=== PATIENT | male | born 1960 | race Two or more races ===

== ENCOUNTER 2022-08-24 17:25 | Emergency (ER) | payer BC ==
[~2022-08-24] VITALS: Ht 188 cm; Wt 109.5 kg
[2022-08-24 19:22] LABS: Basophils # (auto) 0.1 10 ^3/uL (0-0.2); Basophils % (auto) 0.6 % (0.0-2.0); Eosinophils # (auto) 0 10 ^3/uL (0-0.8); Eosinophils % (auto) 0.4 % (0.0-7.0); Hematocrit 50.5 % (41.0-53.0); Hemoglobin 15.7 g/dL (13.5-17.5); Lymphocytes % (auto) 31.3 % (10.0-50.0); Mean Corpuscular Hemoglobin 27.3 pg (28.0-32.0); Mean Corpuscular Hgb Conc. 31.2 g/dL (32.0-36.0); Mean Corpuscular Volume 87.7 fL (80.0-100.0); Monocytes # (auto) 0.8 10 ^3/uL (0-1.3); Monocytes % (auto) 8.1 % (0.0-12.0); Neutrophils # (auto) 5.6 10 ^3/uL (1.6-8.6); Neutrophils % (auto) 59.6 % (37.0-80.0); Red Blood Cells 5.76 10^6/uL (4.5-5.90); Red Cell Distribution Width 13.6 % (11.8-14.3); White Blood Cell 9.4 10^3/uL (4.4-10.8)
[2022-08-24] MEDS ORDERED: SODIUM CHLORIDE 0.9% 1,000 ML IV ONE (19:30)
[2022-08-24 19:35] LABS: Albumin 3.7 g/dL (3.4-5.0); Calcium 10.1 mg/dL (8.5-10.1); Potassium 4.8 mmol/L (3.5-5.1)
[2022-08-24 19:38] LABS: Total Protein 7.7 g/dL (6.4-8.2)
[2022-08-24 19:43] LABS: Bilirubin, Total 0.3 mg/dL (0.2-1.0)
[2022-08-24 19:48] LABS: BUN/Creatinine Ratio 15.9
[2022-08-24 22:05] LABS: Urine WBC None Seen /hpf (0 - 3)
[2022-08-24] MEDS ORDERED: INSULIN LANTUS (GLARGINE) 1 /0.01ml (100units/ml) SC ONE (22:30)
[2022-08-24] MEDS ORDERED: InsuLIN REG 1unit/0.01ml Soln (100units/ml) IV ONE (22:30)
[2022-08-24 22:59] LABS: Urine Bacteria NONE SEEN /hpf (None Seen); Urine Blood Negative /uL (Negative); Urine Specific Gravity 1.025 (1.001-1.035)
[2022-08-25] VITALS: BP 152/71
== END 2022-08-25 00:27 | disposition home or self-care (01) ==
LOC: ER 17:25
DX: E11.65 Type 2 diabetes mellitus with hyperglycemia (principal)
CPT/HCPCS: 36415; 80053; 81001; 82962; 85025; 96361; 96372; 96374; 99285; J1815; J7030

== ENCOUNTER 2023-03-24 12:58 | Emergency (ER) | payer BC ==
[~2023-03-24] VITALS: Ht 188 cm; Wt 109.2 kg
[2023-03-24 15:19] VITALS: BP 123/61
[2023-03-24] MEDS ORDERED: HYDROcodone-ACET 5/325MG TAB PO ONE (16:15)
[2023-03-24] MEDS ORDERED: METH-1182 PO (16:16)
[2023-03-24] MEDS ORDERED: IBUP-1456 PO (16:16)
== END 2023-03-24 16:29 | disposition home or self-care (01) ==
LOC: ER 12:58
DX: S39.012A Strain of muscle, fascia and tendon of lower back, initial encounter (principal); S39.013A Strain of muscle, fascia and tendon of pelvis, initial encounter; E11.9 Type 2 diabetes mellitus without complications; I10 Essential (primary) hypertension; W18.39XA Other fall on same level, initial encounter; Y93.01 Activity, walking, marching and hiking; Y92.89 Other specified places as the place of occurrence of the external cause; Y99.8 Other external cause status
CPT/HCPCS: 72170; 72220; 82962

== ENCOUNTER 2024-10-04 16:52 | Inpatient (IN) | payer BC, MEDICARE ==
[~2024-10-04] VITALS: Ht 188 cm; Wt 118.0 kg
[~2024-10-04 16:52] MED LIST: IBUP-1456 PO; METH-1182 PO
--- NOTE | 2024-10-04 17:17 | ED.PDOC ---
Rajeev. trauma (HPI) HPI Comments 64 y.o male with PMH of DM and HTN, presents to the ED for an evaluation of multiple falls. Patient reports over the past 2 years having balance issues causing him to fall, have increased x 6 months and today fell 3 times. Patient now complains of right sided upper extremity pain. Patient has not been evaluated for this and has increased dizziness today as well. No chest pain, LOC, SOB, head injuries. Pressure was 240/119 at arrival. Time Seen by MD: 17:01 Primary Care Provider: UNKNOWN Reviewed notes: Nurses Notes, Medications, Allergies Allergies: Coded Allergies: NO KNOWN ALLERGIES (Unverified , 08/24/22) Home Meds Active Scripts Methocarbamol (Methocarbamol) 750 Mg Tab, 750 MG PO BID, #20 TAB Prov:RUTH YIP 03/24/23 Ibuprofen (Ibuprofen) 800 Mg Tab, 1 TAB PO TID, #30 TAB Prov:RUTH YIP 03/24/23 Information Source: Patient, Friend Mode of Arrival: Wheelchair Severity: Moderate Timing: Days, Months Duration: Since onset Location: (R) Forearm, (R) Shoulder Location of laceration: None Mechanism: Fall Past Medical History PAST MEDICAL HISTORY: DM, HTN Surgical History: Denies all surgeries Family History Family History: Reviewed,noncontributory to illness Social History Smoker: Non-Smoker Alcohol: Denies ETOH Use Drugs: Denies Drug Use Lives In: Home Constitutional: denies: chills, diaphoresis, fatigue, fever, malaise, sweats, weakness, others EENTM: denies: blurred vision, double vision, ear bleeding, ear discharge, ear drainage, ear pain, ear ringing, eye pain, eye redness, hearing loss, mouth pain, mouth swelling, nasal discharge, nose bleeding, nose congestion, nose pain, photophobia, tearing, throat pain, throat swelling, voice changes, others Respiratory: denies: cough, hemoptysis, orthopnea, SOB at rest, shortness of breath, SOB with excertion, stridor, wheezing, others Cardiovascular: denies: chest pain, dizzy spells, diaphoresis, Dyspnea on exert ion, edema, irregular heart beat, left arm pain, lightheadedness, palpitations, PND, syncope, others Gastrointestinal: denies: abdomen distended, abdominal pain, blood streaked bowels, constipated, diarrhea, dysphagia, difficulty swallowing, hematemesis, melena, nausea, poor appetite, poor fluid intake, rectal bleeding, rectal pain, vomiting, others Genitourinary: denies: burning, dysuria, flank pain, frequency, hematuria, incontinence, penile discharge, penile sore, pain, testicle pain, testicle swelling, urgency, others Neurological: reports: dizziness; denies: fainting, headache, left sided numbness, left sided weakness, numbness, paresthesia, pre-existing deficit, righ t sided numbness, right sided weakness, seizure, speech problems, tingling, tremors, weakness, others Musculoskeletal: reports: others (Generalized weakness); denies: back pain, gout, joint pain, joint swelling, muscle pain, muscle stiffness, neck pain Integumetry: denies: bruises, change in color, change in hair/nails, dryness, laceration, lesions, lumps, rash, wounds, others Allergic/Immunocompromised: denies: Difficulty Healing, Frequent Infections, Hives, Itching, others Hematologic/Lymphatic: denies: anemia, blood clots, easy bleeding, easy bruising, swollen glands, others Endocrine: denies: excessive hunger, excessive sweating, excessive thirst, excessive urination, flushing, intolerance to cold, intolerance to heat, unexplained weight gain, unexplained weight loss, others Psychiatric: denies: anxiety, bipolar disorder, depression, hopeless, panic disorder, schizophrenia, sleepless, suicidal, others All Other Systems: Reviewed and Negative Physical Exam General Appearance: Mild Distress (Patient complains of general ill feeling and weakness.), Normal HEENT: Normal ENT Inspection, Pharynx Normal, TMs Normal Neck: Full Range of Motion, Non-Tender, Normal, Normal Inspection Respiratory: Chest Non-Tender, Lungs Clear, No Accessory Muscle Use, No Respiratory Distress, Normal Breath Sounds Cardiovascular: No Edema, No JVD, No Murmur, No Gallop, Normal Peripheral Pulses, Regular Rate/Rhythm Breast Exam: Deferred Gastrointestinal: No Organomegaly, Non Tender, No Pulsatile Mass, Normal Bowel Sounds, Soft Genitalia: Deferred Pelvic: Deferred Rectal: Deferred Extremities: No calf tenderness, Normal capillary refill, Normal inspection, Normal range of motion, Non-tender, No pedal edema Musculoskeletal : Apperance: Normal Neurologic: Alert, No Motor Deficits, No Sensory Deficits Cerebellar Function: NOT DONE Reflexes: Normal Skin: Dry, Normal Color, Warm Lymphatic: No Adenopathy Was a procedure done? Was a procedure done?: No Differential Diagnosis Multiple Trauma: Encephalopathy, Other (Intracranial mass, acute renal injury, sepsis, pancreatitis, viral illness) X-Ray, Labs, Meds, VS Vital Signs Date Time Temp Pulse Resp B/P (MAP) Pulse Ox O2 Delivery O2 Flow Rate FiO2 10/04/24 20:00 126/60 10/04/24 19:55 98.7 100 18 126/50 (75) 98 98.7 10/04/24 19:55 100 18 97 Room Air* 0 21 10/04/24 17:15 101 10/04/24 17:13 97.9 99 20 240/119 (159) 97 Lab Test 10/04/24 19:46 10/04/24 17:22 10/04/24 17:08 Range/Units Urine Color Dark-yellow Yellow Urine Clarity Turbid H Clear Urine pH 5.5 5.0-9.0 Urine Specific [place] 1.027 1.001-1.035 Urine Protein 2+ H Negative Urine Ketones 1+ H Negative Urine Blood Negative Negative /uL Urine Nitrite Negative Negative Urine Bilirubin Negative Negative Urine Urobilinogen 2 H Negative mg/dL Urine Leukocyte Esterase Trace Negative /uL Urine RBC None seen 0 - 3 /hpf Urine WBC None seen 0 - 3 /hpf Urine Squamous Epithelial Cells None seen <5 /hpf Urine Bacteria None seen None Seen /hpf Urine Glucose 2+ H Normal mg/dL White Blood Count 11.2 H 4.4-10.8 10^3/uL Red Blood Count 4.87 4.5-5.90 10^6/uL Hemoglobin 14.1 13.5-17.5 g/dL Hematocrit 43.2 41.0-53.0 % Mean Corpuscular Volume 88.7 80.0-100.0 fL Mean Corpuscular Hemoglobin 29.0 28.0-32.0 pg Mean Corpuscular Hemoglobin Concent 32.6 32.0-36.0 g/dL Red Cell Distribution Width 14.0 11.8-14.3 % Platelet Count 388 140-450 10^3/uL Mean Platelet Volume 9.0 6.9-10.8 fL Neutrophils (%) (Auto) 60.7 37.0-80.0 % Lymphocytes (%) (Auto) 29.9 10.0-50.0 % Monocytes (%) (Auto) 8.4 0.0-12.0 % Eosinophils (%) (Auto) 0.5 0.0-7.0 % Basophils (%) (Auto) 0.5 0.0-2.0 % Neutrophils # (Auto) 6.8 1.6-8.6 10 ^3/uL Lymphocytes # (Auto) 3.3 0.4-5.4 10 ^3/uL Monocytes # (Auto) 0.9 0-1.3 10 ^3/uL Eosinophils # (Auto) 0.1 0-0.8 10 ^3/uL Basophils # (Auto) 0.1 0-0.2 10 ^3/uL Nucleated Red Blood Cells 0.0 % Sodium Level 134 L 136-145 mmol/L Potassium Level 4.3 3.5-5.1 mmol/L Chloride Level 101 98-107 mmol/L Carbon Dioxide Level 25 20-31 mmol/L Anion Gap 8 5-15 Blood Urea Nitrogen 50 H 9-23 mg/dL Creatinine 2.74 H 0.700-1.30 mg/dL Glomerular Filtration Rate Calc 25 >90 mL/min BUN/Creatinine Ratio 18.2 10.0-20.0 Serum Glucose 114 H 74-106 mg/dL Calcium Level 11.2 H 8.7-10.4 mg/dL Troponin I High Sensitivity 18 </=54 ng/L B-Type Natriuretic Peptide 15.57 0-100 pg/mL Lipase 73 H 12-53 U/L POC Glucose 117 H 70-106 mg/dl X-Ray, Labs, Meds, VS Comment All studies performed the ED were evaluated by me personally. Laboratories revealed an elevated lipase as well as what appears to be an acute on chronic renal injury. Patient denies any knowledge of renal concerns. CT of the abdomen and pelvis was unremarkable for any additional intra-abdominal concerns. Patient's EKG revealed a sinus tachycardia with a rate of 101. Probable left atrial enlargement, left axis deviation and abnormal R-wave progression. NE interval 175 and QT interval of 341. Patient will be admitted for nephrology consultation to address his new renal concerns as well as cardiac evaluation to address his unknown cardiac issues as well as significant blood pressure concerns. Time of 1ST Reevaluation: :38 Reevaluation 1ST: Improved Consultation: PCP, Cardiology Patient Education/Counseling: Diagnosis, Treatment, Prognosis Family Education/Counseling: Diagnosis, Treatment, Prognosis Departure 1 Departure Time of Disposition: 22:38 Impression: Primary Impression: Acute coronary syndromes Additional Impressions: Hypertensive urgency [id number] kidney injury Pancreatitis Disposition: ADMITTED INPATIENT Condition: Stable Discharged With: Self, Spouse Critical Care Note Critical Care Time?: No Stability Stability form required: No I personally scribed for KIKO STEINBERG PAC ([email or web address]) on 10/04/24 at 17:16. Electronically submitted by Silvia Mota ([email or web address]). KIKO STEINBERG PAC Oct 04, 2024 17:16
--- NOTE | 2024-10-04 17:34 | ECG ---
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
--- NOTE | 2024-10-04 17:49 | DVH ---
EXAM: CT HEAD WITHOUT CONTRAST INDICATION: ALOC TECHNIQUE: CT of the head without intravenous contrast. Radiation dose : 1. Head: CT Dose: CTDI volume is 67 mGy. Dose-length product is 1186 mGy*cm The dose indicators for CT are the volume computed tomography (CT) dose index (CTDIvol) and the dose length product (DLP), and are measured in units of mGy and mGy-cm, respectively. These indicators are not patient dose, but values generated from the CT scanner acquisition factors. The report includes radiation exposure data for exposures received during this examination. COMPARISON: None FINDINGS: There is no evidence of acute intracranial hemorrhage, extra-axial collection, mass effect, midline s hift, herniation or hydrocephalus. The ventricles, sulci and cisterns are age appropriate. The leon-white differentiation is intact. Patchy periventricular and subcortical white matter hypoattenuation is nonspecific but may be related to small vessel ischemic disease. The visualized paranasal sinuses and mastoid air cells are clear. The surrounding soft tissues and osseous structures are unremarkable. Right basal ganglia calcificati on. No acute sinusitis IMPRESSION: 1. No acute intracranial abnormality. Radiation optimization: All CT scans at this facility use at least one of these dose optimization michele hniques: Automated exposure control mA and/or kV adjustment per patient size (includes targeted exams where dose is matched to clinical indication) or iterative reconstruction.
[2024-10-04 18:03] LABS: Chloride 101 mmol/L (98-107); Potassium 4.3 mmol/L (3.5-5.1)
[2024-10-04 18:04] LABS: Anion Gap 8 (5-15); Carbon Dioxide 25 mmol/L (20-31)
[2024-10-04 18:07] LABS: Basophils # (auto) 0.1 10 ^3/uL (0-0.2); Basophils % (auto) 0.5 % (0.0-2.0); Eosinophils # (auto) 0.1 10 ^3/uL (0-0.8); Eosinophils % (auto) 0.5 % (0.0-7.0); Hematocrit 43.2 % (41.0-53.0); Hemoglobin 14.1 g/dL (13.5-17.5); Lymphocytes # (auto) 3.3 10 ^3/uL (0.4-5.4); Lymphocytes % (auto) 29.9 % (10.0-50.0); Mean Corpuscular Hgb Conc. 32.6 g/dL (32.0-36.0); Mean Corpuscular Volume 88.7 fL (80.0-100.0); Monocytes # (auto) 0.9 10 ^3/uL (0-1.3); Monocytes % (auto) 8.4 % (0.0-12.0); Neutrophils # (auto) 6.8 10 ^3/uL (1.6-8.6); Neutrophils % (auto) 60.7 % (37.0-80.0); Platelet Count (auto) 388 10^3/uL (140-450); Red Blood Cells 4.87 10^6/uL (4.5-5.90); White Blood Cell 11.2 10^3/uL (4.4-10.8)
[2024-10-04 18:09] LABS: BUN/Creatinine Ratio 18.2 (10.0-20.0)
[2024-10-04 18:20] LABS: Blood Urea Nitrogen 50 mg/dL (9-23); Calcium 11.2 mg/dL (8.7-10.4); Glucose 114 mg/dL (74-106); Lipase 73 U/L (12-53); Sodium 134 mmol/L (136-145)
[2024-10-04 19:55] VITALS: PULSE 100; RESP 18; O2SAT 97
[2024-10-04] MEDS: cloNIDine HCL 0.1 MG TAB PO ONE (20:00)
[2024-10-04 20:22] LABS: Urine Bacteria None Seen /hpf (None Seen); Urine WBC None Seen /hpf (0 - 3)
[2024-10-04 21:00] LABS: Urine Blood Negative /uL (Negative); Urine Clarity Turbid (Clear); Urine Color Dark-Yellow (Yellow); Urine Protein, UAD 2+ (Negative); Urine Specific Gravity 1.027 (1.001-1.035); Urine Squamous Epithelial Cell None Seen /hpf (<5); Urine Urobilinogen 2 mg/dL (Negative); Urine pH 5.5 (5.0-9.0)
--- NOTE | 2024-10-04 21:47 | DVH ---
Exam: CT CT AB PEL WO CON-NO ORAL OR IV History: Elevated laboratories Comparison Study: None available at time of dictation. TECHNIQUE: Multidetector CT of the abdomen was performed from lung bases to pubic symphysis. Imaging was performed without IV contrast. Axial, coronal and sagittal multiplanar reformats were obtained fr om the axial data set by the technologist. Radiation Dose Information: CT Dose: CTDI volume is 17.15 mGy. Dose-length product is 1083.12 mGy*cm FINDINGS: Evaluation of solid organs is limited due to lack of intravenous contrast use. Findings: Lung Bases: No acute or significant lung base finding. Normal heart size. No pleural or pericardial effusion. Liver: The liver is normal in size. No focal lesions. Gallbladder and Biliary Tree: Unremarkable Spleen: Unremarkable Pancreas: The pancreas is grossly normal in appearance. Adrenal Glands: Unremarkable Kidneys: Kidneys are grossly normal without calculi or hydronephrosis. Bladder: Grossly unremarkable for degree of distention. Bowel: The stomach is grossly normal in appearance. Small bowel and colon are normal in caliber and d istribution. The appendix is not visualized; however, no secondary findings of acute appendicitis id entified. Ascites: Absent Lymphadenopathy: No mesenteric, retroperitoneal or periportal lymphadenopathy. Abdominal Wall and Mesentery: Unremarkable. Vasculature: The visualized abdominal aorta is normal in size and caliber. Evaluation of abdominal a nd pelvic vessels is limited due to lack of intravenous contrast. Pelvic Organs: Unremarkable Musculoskeletal: No aggressive focal bony lesions, acute fractures or dislocation. Soft tissues: Unremarkable IMPRESSION: 1. No free fluid no free air 2. No findings of bowel obstruction 3. Stool noted throughout the colon 4. No nephrolithiasis or hydronephrosis. 5. No calcified gallstones Radiation optimization: All CT scans at this facility use at least one of these dose optimization te chniques: automated exposure control mA and/or kV adjustment per patient size (includes targeted exa ms where dose is matched to clinical indication) or iterative reconstruction.
--- NOTE | 2024-10-04 23:08 | DVHHPRES ---
History of Present Illness Resident Creating Document: DARLING LUNSFORD RESIDENT History of Present Illness Patient is 64-year-old male with past medical history of diabetes mellitus, hypertension, CKD stage 4 came to the hospital with a chief complaint of recurrent fainting episode. As per patient he has been having fainting episode since last six months however it got aggravated in last two days. According to patient he fell dizzy and lightheaded when he suddenly stand or start walking around. He does not have any prodrome of symptoms including nausea, vomiting, palpitation, any other symptoms. He never felt fainting or dizziness while sitting or lying down. He denied passing out as he always remember what is happening around him. also observed this kind of episode but denied any seizure-like activity. At the time of evaluation patient denying any other symptoms including chest pain, headache, fever, cough, sputum production, abdominal pain, lower extremity swelling, motor weakness, sensory deficits. Given underlying comorbidities such as uncontrolled diabetes, hypertension and CKD and given multiple medication including high antihypertensive and diabetic medication patient will be evaluated for syncopal episode and will be admitted to the hospital. Home medication: Lantus 40 units evening, Humalog 10 units in a.m. and lunch before meal, 15 units at dinner, 0.5 mg Ozempic every week, metformin 100 mg b.i.d., atorvastatin 80 mg p.o. daily, amlodipine 10 mg p.o. daily, losartan 100 mg p.o. daily, hydrochlorothiazide 25 mg p.o. daily, thiagliatazone 50 mg , metoprolol 50 mg p.o. daily. Past Medical History Diabetes mellitus type 2, hypertension, CKD stage 4 Past Surgical History History of knee meniscal surgery. Family History: None Smoke: No ALCOHOL: none Drugs: None Lives: with Family Review of Systems Review of Systems Eyes: No Pain, No Vision change, No Conjunctivae inflammation, No Eyelid inflammation, No Other, No Redness ENT: No Ear pain, No Ear discharge, No Nose pain, No Nose discharge, No Nose c ongestion, No Mouth pain, No Mouth swelling, No Throat pain, No Throat swelling, No Other Cardiovascular: No Chest Pain, No Palpitations, No Orthopnea, No Paroxysmal Noc. Dyspnea, No Edema, No Lt Headedness, No Other Respiratory: No Cough, No Dry, No Shortness of breath, No SOB with excertion, No Wheezing, No Hemoptysis, No Pleuritic Pain, No Sputum, No Other Gastrointestinal: No Nausea, No Vomiting, No Abdominal Pain, No Diarrhea, No Constipation, No Melena, No Hematochezia, No Other Genitourinary: No Dysuria, No Frequency, No Incontinence, No Hematuria, No Retention, No Other Musculoskeletal: No other, No neck pain, No shoulder pain, No arm pain, No back pain, No hand pain, No leg pain, No foot pain Skin: No Rash, No Lesions, No Jaundice, No Bruising, No Other Allergies: Coded Allergies: NO KNOWN ALLERGIES (Unverified , 08/24/22) Medications Current Medications Medications Dose Ordered Sig/Karla Route Start Time Stop Time Status Last Admin Dose Admin Nitroglycerin 0.4 mg Q5MINP PRN SL 10/04/24 23:15 UNV Morphine Sulfate 2 mg Q30M PRN IV 10/04/24 23:15 UNV Exam Vital Signs Vital Signs Date Time Temp Pulse Resp B/P (MAP) Pulse Ox O2 Delivery O2 Flow Rate FiO2 10/04/24 20:00 126/60 10/04/24 19:55 98.7 100 18 98 98.7 10/04/24 19:55 Room Air* 0 21 Exam General Appearance: Cooperative. Well developed. Well nourished. NAD Head Exam: Normal inspection Neck Exam: Normal inspection. Non-tender. Normal alignment Pulmonary/Respiratory: Chest non-tender. Clear bilateral breath sounds Cardiovascular/Chest: Regular rate and rhythm. No murmurs. No JVD. Peripheral Pulses: 2+ Radial (R). 2+ Radial (L). 2+ Pedal (R). 2+ Pedal (L) Abdominal Exam: Normal bowel sounds. Soft. Nontender. No hepatospenomegaly. No masses Ankle Exam: Negative ankle edema Lower extremities: Negative lower extremity edema Neuro/Mental Status: A&O x4. Coherent Thoughts/Psych: Normal thought pattern. Appropriate mood and affect. Good judgement and insight Appearance: In no acute distress Skin Exam: Normal inspection. Normal color. Warm. Dry Labs/Xrays Labs Test 10/04/24 19:46 10/04/24 17:22 10/04/24 17:08 Range/Units Urine Color Dark-yellow Yellow Urine Clarity Turbid H Clear Urine pH 5.5 5.0-9.0 Urine Specific [place] 1.027 1.001-1.035 Urine Protein 2+ H Negative Urine Ketones 1+ H Negative Urine Blood Negative Negative /uL Urine Nitrite Negative Negative Urine Bilirubin Negative Negative Urine Urobilinogen 2 H Negative mg/dL Urine Leukocyte Esterase Trace Negative /uL Urine RBC None seen 0 - 3 /hpf Urine WBC None seen 0 - 3 /hpf Urine Squamous Epithelial Cells None seen <5 /hpf Urine Bacteria None seen None Seen /hpf Urine Glucose 2+ H Normal mg/dL White Blood Count 11.2 H 4.4-10.8 10^3/uL Red Blood Count 4.87 4.5-5.90 10^6/uL Hemoglobin 14.1 13.5-17.5 g/dL Hematocrit 43.2 41.0-53.0 % Mean Corpuscular Volume 88.7 80.0-100.0 fL Mean Corpuscular Hemoglobin 29.0 28.0-32.0 pg Mean Corpuscular Hemoglobin Concent 32.6 32.0-36.0 g/dL Red Cell Distribution Width 14.0 11.8-14.3 % Platelet Count 388 140-450 10^3/uL Mean Platelet Volume 9.0 6.9-10.8 fL Neutrophils (%) (Auto) 60.7 37.0-80.0 % Lymphocytes (%) (Auto) 29.9 10.0-50.0 % Monocytes (%) (Auto) 8.4 0.0-12.0 % Eosinophils (%) (Auto) 0.5 0.0-7.0 % Basophils (%) (Auto) 0.5 0.0-2.0 % Neutrophils # (Auto) 6.8 1.6-8.6 10 ^3/uL Lymphocytes # (Auto) 3.3 0.4-5.4 10 ^3/uL Monocytes # (Auto) 0.9 0-1.3 10 ^3/uL Eosinophils # (Auto) 0.1 0-0.8 10 ^3/uL Basophils # (Auto) 0.1 0-0.2 10 ^3/uL Nucleated Red Blood Cells 0.0 % Sodium Level 134 L 136-145 mmol/L Potassium Level 4.3 3.5-5.1 mmol/L Chloride Level 101 98-107 mmol/L Carbon Dioxide Level 25 20-31 mmol/L Anion Gap 8 5-15 Blood Urea Nitrogen 50 H 9-23 mg/dL Creatinine 2.74 H 0.700-1.30 mg/dL Glomerular Filtration Rate Calc 25 >90 mL/min BUN/Creatinine Ratio 18.2 10.0-20.0 Serum Glucose 114 H 74-106 mg/dL Calcium Level 11.2 H 8.7-10.4 mg/dL Troponin I High Sensitivity 18 </=54 ng/L B-Type Natriuretic Peptide 15.57 0-100 pg/mL Lipase 73 H 12-53 U/L POC Glucose 117 H 70-106 mg/dl Assessment/Plan Assessment/Plan Presyncope , rule out cardiac etiology, orthostatic hypotension, carotid artery stenosis, neurological etiology. Likely orthostatic hypotension Hypertensive urgency Acute pancreatitis Diabetes mellitus type 2 CKD stage 4 Obesity Plan -evaluate cause of presyncopal episode: Orthostatic vitals, echocardiogram, EKG, carotid ultrasound, head CT scan. -IV fluid LR at 60 mL/hour given elevated lipase enzyme. -moderate insulin sliding scale, can start home dose Lantus 40 units once daily. Blood sugar is controlled around 110 therefore Lantus has not been given -resume blood pressure medication as tolerated. Blood pressure improved from 220 systolic to 120. -nephrology consultation for CKD -CT abdomen 1. No free fluid no free air 2. No findings of bowel obstruction 3. Stool noted throughout the colon4. No nephrolithiasis or hydronephrosis.5. No calcified gallstones. -abdominal ultrasound:Unremarkable upper abdomen ultrasound with the exception of a small simple cyst in the left kidney -head CT:. No acute intracranial abnormality. Goals of care discussed greater than 22 minutes, full code. Plan discussed with Dr. Barker Plan discussed with: Patient, Other (RN) My Orders Orders - DARLING LUNSFORD Procedure Category Date Status Time Admit ADMIT 10/04/24 Transmitted 23:05 Nitroglycerin [facility] 10/04/24 Logged Sublingual (Ntrostat 23:15 Morphine Sulfate [facility] 10/04/24 Logged Injection 23:15 Manager Operating For [facility] 10/04/24 In Process 24 Hours 23:05 Emergency Dysrhythmia [facility] 10/04/24 In Process Protocol 23:05 Date of Service: Oct 04, 2024 Billing Provider: BARKER,IMRAN M MD Common Visit Codes: 75936-[id number] INP/OBS CARE (HIGH) DARLING LUNSFORD Oct 04, 2024 23:08 JR BARKER MD Oct 05, 2024 10:42
[2024-10-04] MEDS ORDERED: MORPHINE SULFATE INJ 2 MG/ml SYRG IV PRN (23:15)
[2024-10-04] MEDS: ATORVASTATIN 20 MG TAB PO ONE (23:15)
[2024-10-04] MEDS ORDERED: DEXTROSE (50%) 50ML SYRG IV PRN (23:15)
[2024-10-04] MEDS ORDERED: NITROGLYCERIN 0.4 MG SL TAB SL PRN (23:15)
[2024-10-04] MEDS: LACTATED RINGER'S 1,000 ML IV ONE (23:15)
[2024-10-04] MEDS: METOPROLOL SUCCINATE XL 50 MG TAB PO ONE (23:30)
[2024-10-04 23:53] LABS: LDL Cholesterol 79 mg/dL (< 100)
[2024-10-04 23:55] LABS: Cholesterol 138 mg/dL (< 200); HDL Cholesterol 41 mg/dL (40-59)
[2024-10-04 23:57] LABS: Triglycerides 169 mg/dL (< 150)
[2024-10-05] VITALS (12 sets, daily range): BP systolic 85–151; BP diastolic 49–68; PULSE 67–117; RESP 16–19; TEMP 97.4–98.4; O2SAT 91–97
--- NOTE | 2024-10-05 00:06 | DVH ---
EXAM: XY CHEST XRAY 1 VIEW CLINICAL HISTORY: syncope TECHNIQUE: Single AP view of the chest WID: COMPARISON: None FINDINGS: Lines and tubes: None Chest: The heart size and pulmonary vasculature is within normal limits. Calcified plaque projects over the aortic arch. No pleural effusion, pneumothorax, or consolidation. Linear scarring or atelectasis in the right lowe r lung. The osseous structures are grossly intact. Multilevel thoracic spondylosis. IMPRESSION: No acute cardiopulmonary abnormality.
--- NOTE | 2024-10-05 01:03 | DVH ---
ABDOMINAL ULTRASOUND CLINICAL HISTORY: gall stone TECHNIQUE: Multiple grayscale and color Doppler ultrasound images were obtained of the abdomen. WID: COMPARISON: CT abdomen and pelvis from 10/04/2024 FINDINGS: Liver and Biliary System: Homogeneous echotexture, normal size measuring 10.4 cm. No focal hepatic observations. No intrahepatic bile duct dilatation. The common duct measures 0.4 cm at the pratima h epatis. The gallbladder is normal caliber without wall thickening or cholelithiasis. Pancreas: Not well Visualized due to overlying bowel gas Kidneys: The right kidney is 9.5 cm and the left kidney is 10.1 cm. No hydronephrosis, increased e chogenicity, shadowing stone, or focal lesion in the right kidney. Small simple cyst in the left midp ole measuring 1.3 cm. IMPRESSION: Unremarkable upper abdomen ultrasound with the exception of a small simple cyst in the left kidney
[2024-10-05] MEDS: LACTATED RINGER'S 1,000 ML IV SCH (04:17)
[2024-10-05] MEDS: ACCU-CHEK COMFORT CURVE STRIP VI SCH (06:11)
[2024-10-05] MEDS: InsuLIN REG 1unit/0.01ml Soln (100units/ml) SC SCH ×2 (06:14→21:22)
[2024-10-05] MEDS ORDERED: LOSARTAN POTASSIUM 50 MG TAB PO SCH (10:00)
[2024-10-05] MEDS ORDERED: amLODIPine BESYLATE 5 MG TAB PO SCH (10:00)
[2024-10-05] MEDS: hydroCHLOROthiazide 25 MG TAB PO SCH (10:00)
[2024-10-05] MEDS ORDERED: METF-370 PO (12:12)
[2024-10-05] MEDS ORDERED: VENL150C3 PO (12:14)
[2024-10-05] MEDS ORDERED: ARIP2TAB PO (12:14)
[2024-10-05] MEDS ORDERED: ATOR80TA PO (12:15)
[2024-10-05] MEDS ORDERED: hydrALAZINE HCL 20 MG/ML VL IV PRN (12:15)
[2024-10-05] MEDS ORDERED: AML5T PO (12:16)
--- NOTE | 2024-10-05 12:16 | DVHPN2 ---
Subjective 64-year-old male with history of hypertension, type 2 diabetes, chronic kidney disease stage 4 came with recurrent syncope for about 2 days He was started on Jardiance 1 week ago He was started on amlodipine 3 weeks ago in addition to his regular medications Changes from previous H/P or p: Changes Objective Vitals Vital Signs Date Time Temp Pulse Resp B/P (MAP) Pulse Ox O2 Delivery O2 Flow Rate FiO2 10/05/24 10:00 95/63 10/05/24 09:20 117 10/05/24 09:19 97.4 17 97 97.4 10/05/24 08:00 Room Air* 0 21 Intake/Output Intake and Output 10/05/24 07:00 Intake Total 0 ml Balance 0 ml Intake Oral 0 ml General Appearance: Alert, Oriented X3, Cooperative, No acute distress Lungs: Clear to auscultation, Normal air movement Cardiovascular: Regular rate, Normal S1 Abdomen: Normal bowel sounds, Soft, No tenderness Extremities: No edema Medications Current Medications Medications Dose Ordered Sig/Karla Route Start Time Stop Time Status Last Admin Dose Admin Nitroglycerin 0.4 mg Q5MINP PRN SL 10/04/24 23:15 Morphine Sulfate 2 mg Q30M PRN IV 10/04/24 23:15 Diagnostic Test (Pha) 1 strip ACHS 10/05/24 07:00 10/05/24 11:52 1 STRIP Insulin Human Regular HS SC 10/05/24 22:00 Insulin Human Regular AC SC 10/05/24 07:00 10/05/24 11:53 2 UNITS Dextrose 50 ml UD PRN IV 10/04/24 23:15 Atorvastatin Calcium 80 mg HS PO 10/05/24 22:00 Laboratory Results Laboratory Tests 10/04/24 17:22 Chemistry Test 10/04/24 17:22 Calcium Level 11.2 mg/dL (8.7-10.4) H Lipid panel Test 10/04/24 17:22 Cholesterol Level 138 mg/dL (< 200) HDL Cholesterol 41 mg/dL (40-59) Lipase 73 U/L (12-53) H Triglycerides Level 169 mg/dL (< 150) H Cardiac Markers Test 10/04/24 17:22 B-Type Natriuretic Peptide 15.57 pg/mL (0-100) HgA1c, TSH Test 10/04/24 17:22 Hemoglobin A1c 9.2 % A1C (<5.7) H Thyroid Stimulating Hormone (TSH) 4.17 uIU/mL (0.55-4.78) Urinalysis Test 10/04/24 19:46 Urine Color Dark-yellow (Yellow) Urine Clarity Turbid (Clear) H Urine pH 5.5 (5.0-9.0) Urine Specific [place] 1.027 (1.001-1.035) Urine Protein 2+ (Negative) H Urine Ketones 1+ (Negative) H Urine Blood Negative /uL (Negative) Urine Nitrite Negative (Negative) Urine Bilirubin Negative (Negative) Urine Urobilinogen 2 mg/dL (Negative) H Urine Leukocyte Esterase Trace /uL (Negative) Urine RBC None seen /hpf (0 - 3) Urine WBC None seen /hpf (0 - 3) Urine Squamous Epithelial Cells None seen /hpf (<5) Urine Bacteria None seen /hpf (None Seen) Urine Glucose 2+ mg/dL (Normal) H Assessment/Plan Assessment/Plan Syncope most likely due to hypotension Hypotension most likely due to over medications Chronic kidney disease stage 4 Hypertension Type 2 diabetes Obesity Plan The patient received IV fluids, discontinue now since his blood pressure is high now Nephrology consult Hold all the blood pressure medications for now Give only hydralazine IV p.r.n. for now Monitor the blood pressure for 24 hours inpatient Resume other home medications including Lantus insulin Hold metformin Hold ibuprofen Continue Abilify Continue Effexor Continue Lantus Full code Discussed with the at the bedside Advance directives discussed for 15 minutes Plan discussed with: Patient, Spouse Date of Service: Oct 05, 2024 Billing Provider: MARY ANN MANZANARES MD Common Visit Codes: [id number] INP/OBS CARE(HIGH) Secondary Visit Codes: 68955-[id number] CARE PLAN 30 MINUTES MARY ANN MANZANARES MD Oct 05, 2024 12:16
[2024-10-05] MEDS ORDERED: LOSA-535 PO (12:17)
[2024-10-05] MEDS ORDERED: HYDR25TA4 PO (12:18)
[2024-10-05] MEDS ORDERED: METO-158 PO (12:18)
[2024-10-05] MEDS ORDERED: PIO30T PO (12:20)
[2024-10-05] MEDS ORDERED: EMPA1TAB PO (12:22)
[2024-10-05] MEDS ORDERED: INSLISPI SC (12:22)
--- NOTE | 2024-10-05 12:49 | DVH ---
Carotid Duplex Date: 10/05/2024 10:57 AM Clinical History: syncope Comparison: None Technique: Duplex Doppler evaluation of the extracranial carotid and vertebral arteries including color Doppler and spectral/pulsed waveform analysis was performed. Findings: RIGHT SIDE: The peak systolic velocities are 105.7 cm/s in the distal CCA and 108 cm/s in the proximal ICA.The IC A/CCA ratio is 1.0. The external carotid artery is patent with peak systolic velocity of 153 cm/s proximally. There is appropriate antegrade flow in the right vertebral artery. LEFT SIDE: The peak systolic velocities are 88.5 cm/s in the distal CCA and 79.6 cm/s in the proximal ICA.. The ICA/CCA ratio is 1.5. The external carotid artery is patent with peak systolic velocity of 85 cm/s proximally. There is appropriate antegrade flow in the left vertebral artery. IMPRESSION: 1. No hemodynamically significant stenosis noted in the right carotid system. 2. No hemodynamically significant stenosis noted in the left carotid system. 3. Reference: Radiology 2003; 229:340-346
[2024-10-05] MEDS: SODIUM CHLORIDE 0.9% 1,000 ML IV SCH (14:00)
--- NOTE | 2024-10-05 14:35 | DVHSR ---
APPROVED REPORT EXAM: Two-dimensional and M-mode echocardiogram with Doppler and color Doppler. Blood Pressure: 109/49 mmHg INDICATION Syncope RISK FACTORS Height: 6'2", Weight: 260 DIMENSIONS LVDd3.5 (3.8-5.7cm)LA (2D)3.5 (1.9-4.0cm)Aortic Root3.5 (2.0-3.7cm) LVDs2.4 (2.5-4.0cm)LA (MM) (1.9-4.0cm)Aortic Cusp Exc2.1 (1.5-2.0cm) EF (%) 65.0 (55-70%)Rt. Atrium3.4 (1.9-4.0cm)Asc. Aorta cm IVSd1.5 (0.7-1.1cm)RV (D) (1.8-2.4cm) PWd1.3 (0.7-1.1cm) Mitral Valve MitralMitral Stenosis E wave0.66m/sMV Mean GR.mmHg A wave1.39m/sMV Peak GR.mmHg E/A ratio0.52D MVAcm2 DECEL [id number] 1/2 Timems Aortic Valve Aortic ValveAortic Stenosis V11.77m/Eleanor Mean GR.12mmHg V22.41m/Eleanor Peak GR.23mmHg LVOT Diameter2.1 (1.8-2.4cm)Doppler AVA2.54cm2 Pulmonic Valve V21.16m/s Other Information Technically limited study due to body habitus. Conclusion Technically good study. Sinus rhythm. Severe concentric LVH. Left atrial enlargement with aortic root enlargement. The valves appear to be structurally normal. Left ventricular contractility appears to be notably increased. EF is about 90%. There is hypercont ractility with the associated hypertrophic features. There does not appear to be systolic anterior m otion of the mitral leaflet. Can not confirm anterior mitral leaflet motion with M-mode. Normal RV function. There is however increased velocities across the LV outflow tract with Valsalva. Gradient s of 90 mmHg are suggested with Valsalva maneuver. This is consistent with intermittent outflow trac t obstruction and hypertrophic obstructive cardiomyopathy. Clinical correlation recommended. Moderate tricuspid regurgitation. No pericardial effusion masses or vegetations.
[2024-10-05] MEDS: ARIPIPRAZOLE 2 MG PO SCH (17:07)
--- NOTE | 2024-10-05 17:21 | DVHINCON2 ---
DATE OF CONSULTATION: 10/05/2024 CONSULTING PHYSICIAN: Dr. Glover. REASON FOR CONSULTATION: Kidney failure. HISTORY OF PRESENT ILLNESS: Mr. Mike is a 64-year-old gentleman who came to the hospital yesterday complaining of syncopal episodes. Apparently, he has been feeling dizzy, lightheaded for several days. This happens when he stands up and starts walking around. This has been occurring for over 6 months, but worsened over the last couple of days. When he came to the hospital, he was found to be hypotensive, systolic blood pressure in the 80s. He was orthostatic. He was also noted that he was in renal failure with a creatinine in the 2.5 range, so I am being consulted to evaluate and handle his kidney disease. The patient denies any loss of consciousness. He denies any vomiting or diarrhea. No obvious blood losses. He denies abdominal pain, edema of the lower extremities or fever. No chest pain. SOCIAL HISTORY: He denies smoking cigarettes or drinking alcohol. FAMILY HISTORY: Negative for chronic conditions. MEDICATIONS: At home, he takes Lantus insulin, Humalog, he takes Ozempic, metformin, atorvastatin, amlodipine, losartan, hydrochlorothiazide, pioglitazone, metoprolol and has also been recently started on Jardiance. PHYSICAL EXAMINATION: VITAL SIGNS: Blood pressure currently is 150/60; although for most of the day in the last 24 hours, his blood pressure was as low as 85/63, heart rate is 97, respirations 17, temperature 97.5. GENERAL: The patient is an adult gentleman who appears to be in no acute distress, alert and oriented x3. HEENT: Unremarkable. NECK: There is no jugular venous distention, palpable thyroid, or lymphadenopathy. LUNGS: Clear to auscultation bilaterally. CARDIOVASCULAR: Shows regular rate. There is an S4 gallop, 1/6 systolic murmur, no pericardial rub. ABDOMEN: Soft, nontender. There area no organomegalies, no ascites. Bowel sounds are normal in intensity and frequency. EXTREMITIES: Show no clubbing, cyanosis. There is no edema. NEUROLOGIC: Nonfocal. SKIN: Unremarkable. LABORATORY FINDINGS: Urinalysis is unremarkable. There is no red blood cells or white blood cells, proteinuria reported as 2+, sodium is 134, potassium 4.3, bicarbonate 25, BUN 50, creatinine 2.7, calculated GFR is 25 mL per minute, glucose 114. Hemoglobin 14.1. CT of the abdomen was done in the Emergency Room. Description of the kidneys is unremarkable. ASSESSMENT AND PLAN: * Acute kidney injury, likely related to renal hypoperfusion in the setting of hypotension and the use of diuretics and antihypertensives. The recent addition of Jardiance may also have contributed to relative volume depletion. * Underlying chronic kidney disease. He most likely has diabetic nephropathy. I do not know what his baseline creatinine is. We should obtain a spot urine protein creatinine ratio and continue to monitor his creatinine and electrolytes. As far as management of acute kidney disease, I would recommend to give him normal saline infusion at 100 mL per hour in order to improve kidney perfusion and blood pressure and this should be done for at least 24 hours. I agree with holding his antihypertensives. However, if his blood pressure goes above 140 systolic consistently, then we can resume oral antihypertensives. I saw the patient, I would recommend to monitor him with nephrology follow up, we may have to reduce the dose of Jardiance or even discontinue if he does not have significant proteinuria. It will also depend on his hemoglobin A1c and chronic hypertension management. These are all issues that should be handled in the outpatient setting. Thank you for the consultation. MD RAMYA Villa/VINAY TID: [id number] RECEIPT: [id number]
[2024-10-05] MEDS: ATORVASTATIN 20 MG TAB PO SCH ×2 (20:58→21:07)
[2024-10-05] MEDS ORDERED: METOPROLOL SUCCINATE XL 50 MG TAB PO SCH (21:00)
[2024-10-05] MEDS: INSULIN LANTUS (GLARGINE) 1 /0.01ml (100units/ml) SC SCH (21:26)
[2024-10-05] MEDS ORDERED: METHOCARBAMOL 500 MG TAB PO PRN (22:00)
[2024-10-06 00:40] VITALS: BP 155/85; PULSE 107; RESP 18; TEMP 98.4; O2SAT 96
[2024-10-06 05:00] VITALS: BP 137/79; PULSE 115; RESP 18; TEMP 97.8; O2SAT 95
[2024-10-06 08:00] VITALS: PULSE 104
[2024-10-06] MEDS: VENLAFAXINE 75 MG PO SCH (08:00)
[2024-10-06 08:30] VITALS: BP 153/69; PULSE 99; RESP 18; TEMP 97.9; O2SAT 97
[2024-10-06 11:30] LABS: Chloride 106 mmol/L (98-107); Potassium 4.1 mmol/L (3.5-5.1); Sodium 139 mmol/L (136-145)
[2024-10-06 11:31] LABS: Anion Gap 10 (5-15); Carbon Dioxide 23 mmol/L (20-31)
[2024-10-06 11:32] LABS: Calcium 10.7 mg/dL (8.7-10.4)
[2024-10-06 11:38] LABS: Blood Urea Nitrogen 35 mg/dL (9-23); Glucose 171 mg/dL (74-106)
[2024-10-06 12:23] LABS: Protein, Urine 70.7 mg/dL (1-14)
[2024-10-06 12:26] LABS: Amphetamine Screen, Urine Neg (NEGATIVE); Barbiturate Scree,Urine Neg (NEGATIVE); Benzodiazephine Screen, Urine Neg (NEGATIVE); Cannabinoid Screen, Urine Neg (NEGATIVE); Cocaine Screen, Urine Neg (NEGATIVE); Creatinine, Urine 64.44 mg/dL (30.0-125.0); Opiate Scree,Urine Neg (NEGATIVE); Phencyclidine Screen, Urine Neg (NEGATIVE)
[2024-10-06 12:30] VITALS: BP 155/85; PULSE 112; RESP 19; TEMP 98.1; O2SAT 95
--- NOTE | 2024-10-06 12:30 | DVHDS2 ---
Discharge Summary Date of Admission Oct 04, 2024 at 23:05 Date of Discharge: Oct 06, 2024 Labs/Diagnostic Data: Laboratory Results Test 10/06/24 10:35 10/06/24 09:55 10/06/24 05:24 10/04/24 19:46 Urine Opiates Screen Neg (NEGATIVE) Urine Fentanyl Screen Neg (NEGATIVE) Urine Barbiturates Screen Neg (NEGATIVE) Urine Phencyclidine Screen Neg (NEGATIVE) Urine Amphetamines Screen Neg (NEGATIVE) Urine Benzodiazepines Screen Neg (NEGATIVE) Urine Cocaine Screen Neg (NEGATIVE) Urine Cannabinoids Screen Neg (NEGATIVE) Sodium Level 139 mmol/L (136-145) Potassium Level 4.1 mmol/L (3.5-5.1) Chloride Level 106 mmol/L (98-107) Carbon Dioxide Level 23 mmol/L (20-31) Anion Gap 10 (5-15) Blood Urea Nitrogen 35 mg/dL (9-23) Creatinine 1.84 mg/dL (0.700-1.30) Glomerular Filtration Rate Calc 40 mL/min (>90) BUN/Creatinine Ratio 19.0 (10.0-20.0) Serum Glucose 171 mg/dL (74-106) Calcium Level 10.7 mg/dL (8.7-10.4) POC Glucose 147 mg/dl (70-106) Urine Color Dark-yellow (Yellow) Urine Clarity Turbid (Clear) Urine pH 5.5 (5.0-9.0) Urine Specific [place] 1.027 (1.001-1.035) Urine Protein 2+ (Negative) Urine Ketones 1+ (Negative) Urine Blood Negative /uL (Negative) Urine Nitrite Negative (Negative) Urine Bilirubin Negative (Negative) Urine Urobilinogen 2 mg/dL (Negative) Urine Leukocyte Esterase Trace /uL (Negative) Urine RBC None seen /hpf (0 - 3) Urine WBC None seen /hpf (0 - 3) Urine Squamous Epithelial Cells None seen /hpf (<5) Urine Bacteria None seen /hpf (None Seen) Urine Glucose 2+ mg/dL (Normal) Test 10/04/24 17:22 White Blood Count 11.2 10^3/uL (4.4-10.8) Red Blood Count 4.87 10^6/uL (4.5-5.90) Hemoglobin 14.1 g/dL (13.5-17.5) Hematocrit 43.2 % (41.0-53.0) Mean Corpuscular Volume 88.7 fL (80.0-100.0) Mean Corpuscular Hemoglobin 29.0 pg (28.0-32.0) Mean Corpuscular Hemoglobin Concent 32.6 g/dL (32.0-36.0) Red Cell Distribution Width 14.0 % (11.8-14.3) Platelet Count 388 10^3/uL (140-450) Mean Platelet Volume 9.0 fL (6.9-10.8) Neutrophils (%) (Auto) 60.7 % (37.0-80.0) Lymphocytes (%) (Auto) 29.9 % (10.0-50.0) Monocytes (%) (Auto) 8.4 % (0.0-12.0) Eosinophils (%) (Auto) 0.5 % (0.0-7.0) Basophils (%) (Auto) 0.5 % (0.0-2.0) Neutrophils # (Auto) 6.8 10 ^3/uL (1.6-8.6) Lymphocytes # (Auto) 3.3 10 ^3/uL (0.4-5.4) Monocytes # (Auto) 0.9 10 ^3/uL (0-1.3) Eosinophils # (Auto) 0.1 10 ^3/uL (0-0.8) Basophils # (Auto) 0.1 10 ^3/uL (0-0.2) Nucleated Red Blood Cells 0.0 % Hemoglobin A1c 9.2 % A1C (<5.7) Troponin I High Sensitivity 18 ng/L (</=54) B-Type Natriuretic Peptide 15.57 pg/mL (0-100) Triglycerides Level 169 mg/dL (< 150) Cholesterol Level 138 mg/dL (< 200) LDL Cholesterol 79 mg/dL (< 100) HDL Cholesterol 41 mg/dL (40-59) Lipase 73 U/L (12-53) Thyroid Stimulating Hormone (TSH) 4.17 uIU/mL (0.55-4.78) Other Laboratory Tests 10/06/24 09:55 10/04/24 17:22 Brief Hx & Hospital Course: Final diagnoses: Syncope most likely due to hypotension Hypotension most likely due to over medications Chronic kidney disease stage 4 Hypertension Type 2 diabetes Obesity 64-year-old male with a history of chronic kidney disease and hypertension who was just started on Jardiance few days ago developed hypotension and recurrent syncopal episodes Here he was hydrated with IV fluids and the antihypertensive medications were held Hydration health his blood pressure and now it is better and he is asymptomatic Creatinine went down to 1.8 now He is feeling better and therefore he will be discharged home Continue the same home medications except to discontinue Jardiance 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 Condition at Discharge: Stable Final Diagnosis/Problems List Syncope most likely due to hypotension Hypotension most likely due to over medications Chronic kidney disease stage 4 Hypertension Type 2 diabetes Obesity Discharge Disposition: Home SNF Discharge Will this Physician continue t: No Discharge Instruct/Medications Diet: Cardiac 2g Na,low cholest, Renal Activity: No Restrictions, As Tolerated Follow Up/Referral: PCP as soon as possible Medications: Discontinue Jardiance Resume other home medications Discharge Statement: "Patient was advised to return to the ER or call 911 if any headaches, dizziness, shortness of breath, chest pain, abdominal pain, bleeding, fevers, or worsening of medical condition. Patient was counseled about treatment plan, medications, possible side effects, patientverbalized understanding. All questions were answered to the best of my ability. This discharge took greater then 30 minutes in planning, reviewing documentation, counseling the patient, and discussing with other team members." ASSESSMENT ASSESSMENT Assessment Syncope most likely due to hypotension Hypotension most likely due to over medications Chronic kidney disease stage 4 Hypertension Type 2 diabetes Obesity Date of Service: Oct 06, 2024 Billing Provider: MARY ANN MANZANARES MD Common Visit Codes: 85256-ZCX/OBS DISCH DAY >30min MARY ANN MANZANARES MD Oct 06, 2024 12:30
[2024-10-06 12:38] LABS: Urine Protein/Creatinine Ratio 1.1
[2024-10-06] MEDS: METOPROLOL TARTRATE 25 MG TAB PO ONE (12:38)
--- NOTE | 2024-10-06 14:02 | DVHPN2 ---
Progress Note - Dictate Date Seen: Oct 06, 2024 Has the PT tested + for MRSA If YES, has PT been informed?: No Medical Necessity Reason Pt with a Central, PICC or Fol: No Subjective Feels better vital signs Vital Sign Date Time Temp Pulse Resp B/P (MAP) Pulse Ox O2 Delivery O2 Flow Rate FiO2 10/06/24 12:38 112 155/85 10/06/24 12:30 98.1 19 95 98.1 10/06/24 08:00 Room Air* 0 21 Total Intake and Output 10/05/24 10/05/24 10/06/24 15:00 23:00 07:00 Intake Total 600 ml 520 ml 750 ml Output Total 1000 ml 400 ml Balance 600 ml -480 ml 350 ml medications Current Medications Medications Dose Ordered Sig/Karla Route Start Time Stop Time Status Last Admin Dose Admin Nitroglycerin 0.4 mg Q5MINP PRN SL 10/04/24 23:15 Morphine Sulfate 2 mg Q30M PRN IV 10/04/24 23:15 Diagnostic Test (Pha) 1 strip ACHS 10/05/24 07:00 10/06/24 11:32 1 STRIP Insulin Human Regular HS SC 10/05/24 22:00 10/05/24 21:22 3 UNITS Insulin Human Regular AC SC 10/05/24 07:00 10/06/24 11:32 2 UNITS Dextrose 50 ml UD PRN IV 10/04/24 23:15 Hydralazine HCl 10 mg Q6HP PRN IV 10/05/24 12:15 Insulin Glargine 10 units BID@0700,2200 SC 10/05/24 22:00 10/06/24 06:39 10 UNITS Patient Own Medication 1 tab DAILY@DINNER PO 10/05/24 17:30 Atorvastatin Calcium 80 mg HS PO 10/05/24 22:00 Methocarbamol 750 mg BID PRN PO 10/05/24 22:00 Patient Own Medication 2 cap DAILY@BREAKFAST PO 10/06/24 08:00 Sodium Chloride 1,000 ml @ 100 mls/hr Q10H IV 10/05/24 14:00 10/06/24 10:00 100 MLS/HR Metoprolol Tartrate 25 mg BID PO 10/06/24 22:00 objective Alert and oriented x 2 NAD Lungs CTA CV RR, no pericardial rub Abdomen soft, NT, bravo bowel sounds No leg edema laboratory and microbiology Laboratory Tests 10/06/24 09:55 10/04/24 17:22 Test 10/06/24 09:55 Range/Units Serum Glucose 171 H 74-106 mg/dL Problem List 1. NELLIE due to volume depletion has resolved 2. CKD3b 3. Diabetic nephropathy 4. Proteinuria gram 5. HTN, better controlled Hed can be dc home Discontinue HCTZ Continue Jardiance Follow up with nephrology in 4 weeks Plan discussed with: Patient PATRICK SERRANO MD Oct 06, 2024 14:02
[2024-10-06] MEDS ORDERED: METOPROLOL TARTRATE 25 MG TAB PO SCH (22:00)
== END 2024-10-06 15:15 | disposition home or self-care (01) | DRG 312 ==
LOC: ER 16:52 → TELE 23:05 → TELE-WESTW 10-05 02:29
PROVIDERS: ADMIT Internal Medicine Geriatric Medicine; ATTEND Internal Medicine Geriatric Medicine
DX: I95.2 Hypotension due to drugs (principal); N17.9 Acute kidney failure, unspecified; N18.4 Chronic kidney disease, stage 4 (severe); E11.22 Type 2 diabetes mellitus with diabetic chronic kidney disease; E66.9 Obesity, unspecified; E86.9 Volume depletion, unspecified; I16.0 Hypertensive urgency; I12.9 Hypertensive chronic kidney disease with stage 1 through stage 4 chronic kidney disease, or unspecified chronic kidney disease; Z68.33 Body mass index [BMI] 33.0-33.9, adult; T50.995A Adverse effect of other drugs, medicaments and biological substances, initial encounter; Z79.899 Other long term (current) drug therapy; Z79.4 Long term (current) use of insulin; Y92.89 Other specified places as the place of occurrence of the external cause
CPT/HCPCS: 36415; 70450; 71045; 74176; 76705; 80048; 80061; 80307; 81001; 82570; 82607; 82962; 83036; 83690; 83880; 83935; 84156; 84300; 84443; 84484; 85025; 93005; 93306; 93886; G0378; J1815

== ENCOUNTER 2024-10-25 12:40 | Emergency (ER) | payer MEDICARE ==
[~2024-10-25] VITALS: Ht 188 cm; Wt 121.2 kg
[~2024-10-25 12:40] MED LIST changes: +AML5T PO; +ARIP2TAB PO; +ATOR80TA PO; +HYDR25TA4 PO; +INSLISPI SC; +LOSA-535 PO; +METF-370 PO; +METO-158 PO; +PIO30T PO; +VENL150C3 PO
[2024-10-25 14:01] VITALS: BP 136/72; PULSE 89; RESP 17; TEMP 97.7; O2SAT 97
--- NOTE | 2024-10-25 14:17 | ED.PDOC ---
Musculoskeletal HPI Comments A 64 YEAR OLD MALE PRESENTS TO THE ED WITH COMPLAINT OF LEFT ANKLE SWELLING. PATIENT STATES HE HAS BEEN EXPERIENCING LEFT ANKLE SWELLING FOR THE PAST 2 WEEKS. PATIENT NOTES HE WAS SENT TO THE ED BY HIS PCP FOR EVALUATION. PATIENT DENIES FEVER, CHILLS, SHORTNESS OF BREATH, CHEST PAIN, ABDOMINAL PAIN, NAUSEA, VOMITING, HEADACHE, OR OTHER COMPLAINTS. NO OTHER SYMPTOMS OR MODIFYING FACTORS AT THIS TIME. PATIENT IS ALERT, ORIENTED X 4, AND HAS STEADY GAIT. Chief Complaint: Lower Extremity Time Seen by MD: 13:11 Primary Care Provider: UNKNOWN Reviewed Notes: Nurses Notes, Medications, Allergies Allergies: Coded Allergies: NO KNOWN ALLERGIES (Unverified , 08/24/22) Home Meds Active Scripts Ibuprofen (Ibuprofen) 800 Mg Tab, 1 TAB PO TID, #30 TAB Prov:RUTH YIP 10/25/24 Methocarbamol (Methocarbamol) 750 Mg Tab, 750 MG PO BID, #20 TAB Prov:RUTH YIP 03/24/23 Ibuprofen (Ibuprofen) 800 Mg Tab, 1 TAB PO TID, #30 TAB Prov:RUTH YIP 03/24/23 Reported Medications Insulin Lispro (Human) (Humalog) 100 Unit/Ml Inj, 15 UNIT SC DAILY, INJ 10/05/24 Pioglitazone Hydrochloride (ACTOS TABLET) 30 Mg Tb, 15 MG PO DAILY@BREAKFAST, TAB 10/05/24 Hydrochlorothiazide (Hydrochlorothiazide) 25 Mg Tab, 25 MG PO DAILY@BREAKFAST for 30 Days, MG 10/05/24 Metoprolol Tartrate (Metoprolol Tartrate) 50 Mg Tab, 50 MG PO DAILY for 30 Days, MG 10/05/24 Losartan Potassium (Losartan Potassium) 100 Mg Tab, 100 MG PO DAILY@BREAKFAST for 30 Days, MG 10/05/24 Amlodipine Besylate (NORVASC TABLET) 5 Mg Tb, 2 TAB PO DAILY, #30 TAB 5 Refills 10/05/24 Atorvastatin Calcium (Lipitor) 80 Mg Tab, 1 TAB PO DAILY@BREAKFAST, #30 TAB 5 Refills 10/05/24 Aripiprazole (Abilify) 2 Mg Tab, 1 TAB PO DAILY@DINNER, #30 TAB 2 Refills 10/05/24 Venlafaxine Hydrochloride (Effexor Xr) 150 Mg Cap, 2 CAP PO DAILY@BREAKFAST, #30 CAP 1 Refill 10/05/24 Metformin Hydrochloride (Metformin Hcl) 500 Mg Tab, 1000 MG PO BID for 30 Days, MG 10/05/24 Information Source: Patient Mode of Arrival: Ambulatory Location: Left Extremity Location: Ankle Timing: Days Prehospital treatment: None Severity: Moderate Able to Move Extremity: Yes Bear Weight: Fully Pain: Moderate Mechanism: No Trauma, Spontaneous Circumstances: Spontaneous Onset of Symptoms: Spontaneous Symptoms: Swelling DVT Risk Factors: NONE Last Tetanus: Unknown Associated signs and symptoms: Ankle pain, Foot pain Past Medical History PAST MEDICAL HISTORY: DM, HTN Surgical History: Denies all surgeries Family History Family History: Reviewed,noncontributory to illness Social History Smoker: Non-Smoker Alcohol: Denies ETOH Use Drugs: Denies Drug Use Lives In: Home Constitutional: denies: chills, diaphoresis, fatigue, fever, malaise, sweats, weakness, others EENTM: denies: blurred vision, double vision, ear bleeding, ear discharge, ear drainage, ear pain, ear ringing, eye pain, eye redness, hearing loss, mouth pain, mouth swelling, nasal discharge, nose bleeding, nose congestion, nose pain, photophobia, tearing, throat pain, throat swelling, voice changes, others Respiratory: denies: cough, hemoptysis, orthopnea, SOB at rest, shortness of breath, SOB with excertion, stridor, wheezing, others Cardiovascular: denies: chest pain, dizzy spells, diaphoresis, Dyspnea on exertion, edema, irregular heart beat, left arm pain, lightheadedness, palpitations, PND, syncope, others Gastrointestinal: denies: abdomen distended, abdominal pain, blood streaked bowels, constipated, diarrhea, dysphagia, difficulty swallowing, hematemesis, melena, nausea, poor appetite, poor fluid intake, rectal bleeding, rectal pain, vomiting, others Genitourinary: denies: burning, dysuria, flank pain, frequency, hematuria, incontinence, penile discharge, penile sore, pain, testicle pain, testicle swelling, urgency, others Neurological: denies: dizziness, fainting, headache, left sided numbness, left sided weakness, numbness, paresthesia, pre-existing deficit, right sided numbness, right sided weakness, seizure, speech problems, tingling, tremors, weakness, others Musculoskeletal: reports: joint pain, joint swelling, others (LEFT ANKLE SWELLING); denies: back pain, gout, muscle pain, muscle stiffness, neck pain Integumetry: denies: bruises, change in color, change in hair/nails, dryness, laceration, lesions, lumps, rash, wounds, others Allergic/Immunocompromised: denies: Difficulty Healing, Frequent Infections, Hives, Itching, others Hematologic/Lymphatic: denies: anemia, blood clots, easy bleeding, easy bruising, swollen glands, others Endocrine: denies: excessive hunger, excessive sweating, excessive thirst, excessive urination, flushing, intolerance to cold, intolerance to heat, unexplained weight gain, unexplained weight loss, others Psychiatric: denies: anxiety, bipolar disorder, depression, hopeless, panic disorder, schizophrenia, sleepless, suicidal, others All Other Systems: Reviewed and Negative Physical Exam General Appearance: Obese HEENT: Normal ENT Inspection, PERRL/EOMI, Pharynx Normal, TMs Normal Neck: Full Range of Motion, Non-Tender, Normal, Normal Inspection Respiratory: Chest Non-Tender, Lungs Clear, No Accessory Muscle Use, No Respiratory Distress, Normal Breath Sounds Cardiovascular: No Edema, No JVD, No Murmur, No Gallop, Normal Peripheral Pulses, Regular Rate/Rhythm Breast Exam: Deferred Gastrointestinal: No Organomegaly, Non Tender, No Pulsatile Mass, Normal Bowel Sounds, Soft Genitalia: Deferred Pelvic: Deferred Rectal: Deferred Extremities: No calf tenderness, Normal capillary refill, Normal range of motion, No pedal edema, Swelling (BONY TENDERNESS AND SWELLING ON LEFT ANKLE AND FOOT, NO REDNESS AND DEFORMITY. ), Tender (BONY TENDERNESS AND SWELLING ON LEFT FOOT. ) Musculoskeletal : Apperance: Normal Neurologic: Alert, measuring machine operator II-XII nml as Tested, No Motor Deficits, Normal Affect, Normal Mood, No Sensory Deficits Cerebellar Function: Normal Reflexes: Normal Skin: Dry, Normal Color, Warm Peripheral Pulses: 2+ carotid (R), 2+ carotid (L), 2+ dorsalis pedis (R), 2+ dorsalis pedis (L) Lymphatic: No Adenopathy Was a procedure done? Was a procedure done?: No Differential Diagnosis EXT Differential Diagnosis: Cellulitis, Sprain, Gout, DJD, Contusion, Arthritis, Bursitis X-Ray, Labs, Meds, VS Vital Signs Date Time Temp Pulse Resp B/P (MAP) Pulse Ox O2 Delivery O2 Flow Rate FiO2 10/25/24 14:01 89 17 97 Room Air 10/25/24 14:01 97.7 89 17 136/72 (93) 97 97.7 10/25/24 13:45 97.7 89 17 136/72 (93) 97 X-Ray, Labs, Meds, VS Comment EXTERNAL MEDICAL RECORDS REVIEWED: [NONE] INDEPENDENT HISTORIANS: [NONE] SOCIAL DETERMINANTS OF HEALTH: [NONE] LABS ORDERED: NONE REVIEWED AND INTERPRETED RESULTS: NONE IMAGING ORDERED: XR ANKLE LT: [INTERPRETED BY ME. NONDISPLACED FRACTURE OF BASE OF 5TH METATARSAL VISUALIZED. NO OTHER ABNORMALITY SEEN. NO DISLOCATION SEEN. PE NDING RADIOLOGY REVIEW.] XR FOOT LT: [INTERPRETED BY ME. NONDISPLACED FRACTURE OF BASE OF 5TH METATARSAL VISUALIZED. NO OTHER ABNORMALITY SEEN. NO DISLOCATION SEEN. PENDING RADIOLOGY REVIEW.] TREATMENTS ORDERED: POSTERIOR SPLINT APPLIED TO PATIENT'S LEFT FOOT. PROCEDURES PERFORMED: NONE CRITICAL CARE TIME: NONE I HAVE DISCUSSED THE PATIENT WITH THE ATTENDING PHYSICIAN DR. PEREA AND HE AGREES WITH THE PATIENT'S PLAN OF CARE AND DISPOSITION. BASED ON HISTORY OF PRESENT ILLNESS, AND PHYSICAL EXAM, PATIENT WILL BE DISCHARGED HOME. DISCUSSED PLAN FOR DISCHARGE HOME WITH RX [IBUPROFEN 800MG]. MEDICATION WARNINGS GIVEN. SHARED DECISION MAKING: DISCUSSED WITH PATIENT THAT THEIR WORKUP WAS NORMAL. PATIENT INSTRUCTED TO FOLLOW UP WITH PRIMARY CARE PROVIDER IN 1-2 DAYS FOR RE- EVALUATION OF SYMPTOMS. PATIENT VERBALIZES UNDERSTANDING TO RETURN TO ED FOR NEW OR WORSENING SYMPTOMS OR IF FOLLOW UP WITH PCP CANNOT BE OBTAINED. PATIENT FEELS COMFORTABLE GOING HOME AT THIS TIME. ALL QUESTIONS ADDRESSED AT TIME OF DISCHARGE. Images Reviewed?: Images reviewed and evaluated by me Time of 1ST Reevaluation: 15:18 Reevaluation 1ST: Improved Patient Education/Counseling: Diagnosis, Treatment, Need For Follow Up Family Education/Counseling: Diagnosis, Treatment, Need For Follow Up Medical Screening: No EMC Exist At This Time Departure 1 Departure Time of Disposition: 15:30 Impression: Primary Impression: Closed fracture of fifth metatarsal bone of left foot Qualified Codes: S92.355A - Nondisplaced fracture of fifth metatarsal bone, left foot, initial encounter for closed fracture Disposition: 01 HOME / SELF CARE / HOMELESS Condition: Stable Additional Instructions: FOLLOW-UP WITH PCP IN 1 TO 2 DAYS FOR REFERRAL TO SIGN PAINTER APPRENTICE. TAKE MEDICATIONS PRESCRIBED. RETURN TO ED FOR ANY NEW OR WORSENING SYMPTOMS. e-Prescriptions Ibuprofen (Ibuprofen) 800 Mg Tab 1 TAB PO TID, #30 TAB Prov: RUTH YIP 10/25/24 Discharged With: Self Critical Care Note Critical Care Time?: No Stability Stability form required: No I personally scribed for RUTH YIP ([email or web address]) on 10/25/24 at 14:17. Electronically submitted by Oleg Wright ([employer]). I personally scribed for RUTH YIP ([email or web address]) on 10/25/24 at 14:45. Electronically submitted by Oleg Wright ([employer]). RUTH YIP Oct 25, 2024 14:17
--- NOTE | 2024-10-25 14:55 | DVH ---
XY L ANKLE 3 VIEW, INDICATION: PAIN AND SWELLING, NO INJURY TECHNICAL DATA:Frontal , oblique and lateral views were obtained of the left ankle. COMPARISON: None FINDINGS: Displaced fracture at the base of the 5th metatarsal. Joint spaces are maintained. Alignment is nikole omic. Mild ankle swelling. IMPRESSION: Displaced fracture at the base of the 5th metatarsal.
--- NOTE | 2024-10-25 15:08 | DVH ---
XY L FOOT 3 VIEW XRAY, INDICATION: INJURY TECHNICAL DATA: Frontal, oblique and lateral views were obtained of the left foot. COMPARISON: None FINDINGS: Displaced fracture at the base of the 5th metatarsal. Joint spaces are maintained. Alignment is anato aneta. The hallux sesamoids appear normal. Soft tissues are within normal limits. IMPRESSION: Displaced fracture at the base of the 5th metatarsal.
== END 2024-10-25 15:20 | disposition home or self-care (01) ==
LOC: ER 12:40
DX: S92.355A Nondisplaced fracture of fifth metatarsal bone, left foot, initial encounter for closed fracture (principal); Y99.8 Other external cause status; X58.XXXA Exposure to other specified factors, initial encounter; Y93.89 Activity, other specified; Y92.89 Other specified places as the place of occurrence of the external cause; Z79.899 Other long term (current) drug therapy
CPT/HCPCS: 29515; 73610; 73630

== ENCOUNTER 2024-10-29 13:26 | Emergency (ER) | payer MEDICARE ==
[~2024-10-29] VITALS: Ht 182.9 cm; Wt 95.6 kg
[2024-10-29 14:02] VITALS: BP 123/60; TEMP 98.1
[2024-10-29 14:16] VITALS: PULSE 96; RESP 17; O2SAT 96
--- NOTE | 2024-10-29 14:24 | ED.PDOC ---
Musculoskeletal HPI Comments 64 year old male with a recent fracture presents to the ED requesting the splint to be rewrapped. Reports it came undone this morning. Chief Complaint: Wound Check Time Seen by MD: 13:53 Primary Care Provider: alfredo Reviewed Notes: Nurses Notes, Medications, Allergies Allergies: Coded Allergies: NO KNOWN ALLERGIES (Unverified , 08/24/22) Home Meds Active Scripts Ibuprofen (Ibuprofen) 800 Mg Tab, 1 TAB PO TID, #30 TAB Prov:RUTH YIP 10/25/24 Methocarbamol (Methocarbamol) 750 Mg Tab, 750 MG PO BID, #20 TAB Prov:RUTH YIP 03/24/23 Ibuprofen (Ibuprofen) 800 Mg Tab, 1 TAB PO TID, #30 TAB Prov:RUTH YIP 03/24/23 Reported Medications Insulin Lispro (Human) (Humalog) 100 Unit/Ml Inj, 15 UNIT SC DAILY, INJ 10/05/24 Pioglitazone Hydrochloride (ACTOS TABLET) 30 Mg Tb, 15 MG PO DAILY@BREAKFAST, TAB 10/05/24 Hydrochlorothiazide (Hydrochlorothiazide) 25 Mg Tab, 25 MG PO DAILY@BREAKFAST for 30 Days, MG 10/05/24 Metoprolol Tartrate (Metoprolol Tartrate) 50 Mg Tab, 50 MG PO DAILY for 30 Days, MG 10/05/24 Losartan Potassium (Losartan Potassium) 100 Mg Tab, 100 MG PO DAILY@BREAKFAST for 30 Days, MG 10/05/24 Amlodipine Besylate (NORVASC TABLET) 5 Mg Tb, 2 TAB PO DAILY, #30 TAB 5 Refills 10/05/24 Atorvastatin Calcium (Lipitor) 80 Mg Tab, 1 TAB PO DAILY@BREAKFAST, #30 TAB 5 Refills 10/05/24 Aripiprazole (Abilify) 2 Mg Tab, 1 TAB PO DAILY@DINNER, #30 TAB 2 Refills 10/05/24 Venlafaxine Hydrochloride (Effexor Xr) 150 Mg Cap, 2 CAP PO DAILY@BREAKFAST, #30 CAP 1 Refill 10/05/24 Metformin Hydrochloride (Metformin Hcl) 500 Mg Tab, 1000 MG PO BID for 30 Days, MG 10/05/24 Mode of Arrival: Ambulatory Past Medical History PAST MEDICAL HISTORY: DM, HTN Surgical History: Denies all surgeries Family History Family History: Reviewed,noncontributory to illness Social History Smoker: Non-Smoker Alcohol: Denies ETOH Use Drugs: Denies Drug Use Lives In: Home All Other Systems: Reviewed and Negative (Per HPI) Physical Exam General Appearance: No Apparent Distress, Normal HEENT: Normal ENT Inspection, Pharynx Normal, TMs Normal Neck: Full Range of Motion, Non-Tender, Normal, Normal Inspection Respiratory: Chest Non-Tender, Lungs Clear, No Accessory Muscle Use, No Respiratory Distress, Normal Breath Sounds Cardiovascular: No Murmur, No Gallop, Regular Rate/Rhythm Breast Exam: Deferred Gastrointestinal: No Organomegaly, Non Tender, No Pulsatile Mass, Normal Bowel Sounds, Soft Genitalia: Deferred Pelvic: Deferred Rectal: Deferred Extremities: No calf tenderness, Normal capillary refill, Normal inspection, Normal range of motion, Non-tender, No pedal edema Musculoskeletal : Apperance: Normal Neurologic: Alert, No Motor Deficits, Normal Affect, Normal Mood, No Sensory Deficits Cerebellar Function: Normal Reflexes: Normal Skin: Dry, Normal Color, Warm Lymphatic: No Adenopathy Was a procedure done? Was a procedure done?: No Differential Diagnosis EXT Differential Diagnosis: Fracture X-Ray, Labs, Meds, VS Vital Signs Date Time Temp Pulse Resp B/P (MAP) Pulse Ox O2 Delivery O2 Flow Rate FiO2 10/29/24 14:16 96 17 96 Room Air 0 10/29/24 14:02 98.1 96 17 123/60 (81) 96 98.1 10/29/24 13:40 98.1 96 17 123/60 (81) 96 X-Ray, Labs, Meds, VS Comment wrapped. return precautions discussed Time of 1ST Reevaluation: 14:00 Reevaluation 1ST: Improved Patient Education/Counseling: Diagnosis, Treatment Family Education/Counseling: Diagnosis, Treatment Departure 1 Departure Time of Disposition: 14:23 Impression: Primary Impression: Closed fracture of fifth metatarsal bone of left foot Qualified Codes: S92.355S - Nondisplaced fracture of fifth metatarsal bone, left foot, sequela Disposition: HOME / SELF CARE / HOMELESS Condition: Stable Critical Care Note Critical Care Time?: No Stability Stability form required: No Heart Score Heart Score: Heart Score Response (Comments) Value History N/A 0 EKG N/A 0 Age N/A 0 Risk Factors N/A 0 Troponin N/A 0 Total 0 RAMSES LUBIN NP Oct 29, 2024 14:24
== END 2024-10-29 14:28 | disposition home or self-care (01) ==
LOC: ER 13:26
DX: S92.355D Nondisplaced fracture of fifth metatarsal bone, left foot, subsequent encounter for fracture with routine healing (principal); E11.9 Type 2 diabetes mellitus without complications; I10 Essential (primary) hypertension; Z79.1 Long term (current) use of non-steroidal anti-inflammatories (NSAID); Z79.4 Long term (current) use of insulin; Z79.84 Long term (current) use of oral hypoglycemic drugs; Z79.899 Other long term (current) drug therapy; X58.XXXD Exposure to other specified factors, subsequent encounter